=== PATIENT | female | born 1980 | race Caucasian/White ===

== ENCOUNTER → 2016-10-23 | Outpatient (CLI) | payer OTHER | LOC: BRMIMAGING 15:36 | PROVIDERS: ATTEND Registered Nurse | DX: M25.562 Pain in left knee (principal) | CPT/HCPCS: 73562-PO ==

== ENCOUNTER → 2017-09-03 | Outpatient (CLI) | payer OTHER | LOC: BRMIMAGING 07:44 | PROVIDERS: ATTEND Family Medicine | DX: Z12.31 Encounter for screening mammogram for malignant neoplasm of breast (principal) ==